=== PATIENT | female | born 1955 | race Caucasian/White ===

== ENCOUNTER 2018-02-18 10:19 | Emergency (ER) | payer MEDICAID ==
[~2018-02-18] VITALS: Ht 162.6 cm; Wt 54.0 kg
[2018-02-18 10:27] VITALS: BP 125/76
[2018-02-18 10:54] LABS: BASOPHILS # (AUTO) 0.1 X10'3 (0-0.2); BASOPHILS % (AUTO) 1.6 % (0-1); EOSINOPHILS # (AUTO) 0.1 X10'3 (0-0.9); EOSINOPHILS % (AUTO) 1.2 % (0-6); HEMATOCRIT 41.9 % (35.0-45.0); HEMOGLOBIN 14.5 g/dl (12.0-16.0); LYMPHOCYTES % (AUTO) 24.8 % (21-51); MEAN CORPUSCULAR HEMOGLOBIN 31.9 PG (27.0-31.0); MEAN CORPUSCULAR HGB CONC 34.7 % (33.0-36.5); MEAN PLATELET VOLUME 8.2 FL (7.4-10.4); MONOCYTES # (AUTO) 0.5 X10'3 (0-0.9); MONOCYTES % (AUTO) 6.6 % (2-12); NEUTROPHILS # (AUTO) 5.3 X10'3 (1.8-7.7); NEUTROPHILS % (AUTO) 65.8 % (42-75); PLATELET COUNT 239 X10'3 (140-440); RED BLOOD COUNT 4.55 X10'6 (4.20-5.60); RED CELL DISTRIBUTION WIDTH 14.2 % (11.5-14.5)
[2018-02-18 10:59] LABS: CLARITY,URINE CLEAR (Clear); COLOR,URINE YELLOW (Yellow); GLUCOSE, URINE NEGATIVE (Neg); KETONES,URINE NEGATIVE (Neg); LEUKOCYTE ESTERASE ,URINE NEGATIVE (Neg); NITRITES, URINE NEGATIVE (Neg); OCCULT BLOOD,URINE NEGATIVE (Neg); PH,URINE 6.5 (4.8-8.0); PROTEIN,URINE NEGATIVE (Neg); UROBILINOGEN,URINE 0.2 E.U/dL (0.2-1.0)
[2018-02-18 11:02] LABS: INR 0.9 INR; PROTHROMBIN TIME 9.7 SECONDS (9.0-12.0)
[2018-02-18 11:07] LABS: UA COLLECTION TYPE CLN CATCH MIDSTREAM
[2018-02-18 11:09] LABS: ALANINE AMINOTRANSFERASE 33 U/L (12-78); ALBUMIN 4.4 G/DL (3.4-5.0); ALBUMIN/GLOBULIN RATIO 1.2 (1.1-1.5); ALKALINE PHOSPHATASE 61 IU/L (46-116); AMYLASE 40 U/L (25-115); ANION GAP 9 (8-16); ASPARTATE AMINO TRANSFERASE 26 U/L (10-37); BILIRUBIN,TOTAL 0.5 MG/DL (0.1-1.0); BLOOD UREA NITROGEN 11 MG/DL (7-18); BUN/CREATININE RATIO 19.6 (6.6-38.0); CALCIUM 9.9 MG/DL (8.5-10.1); CHLORIDE 104 MMOL/L (99-107); CREATININE 0.56 MG/DL (0.40-0.90); GLUCOSE 70 MG/DL (70-104); LIPASE 209 U/L (73-393); POTASSIUM 4.3 MMOL/L (3.5-5.1); SODIUM 144 MMOL/L (135-145); TOTAL CARBON DIOXIDE 30.8 MMOL/L (24-32); eGFR > 90 ML/MIN
== END 2018-02-18 13:30 | disposition home or self-care (01) ==
LOC: ER 10:19
DX: S39.011A Strain of muscle, fascia and tendon of abdomen, initial encounter (principal); G62.9 Polyneuropathy, unspecified; E78.00 Pure hypercholesterolemia, unspecified; I10 Essential (primary) hypertension; M81.0 Age-related osteoporosis without current pathological fracture; F17.210 Nicotine dependence, cigarettes, uncomplicated; Z88.0 Allergy status to penicillin; X58.XXXA Exposure to other specified factors, initial encounter; Y93.89 Activity, other specified; Y92.89 Other specified places as the place of occurrence of the external cause; Y99.8 Other external cause status
CPT/HCPCS: 36415; 80053; 81003; 82150; 83690; 85025; 85610; 99284

== ENCOUNTER 2024-12-28 09:35 | Emergency (ER) | payer BC, MEDICAID ==
[~2024-12-28] VITALS: Ht 162.6 cm; Wt 125.0 kg
[~2024-12-28 09:35] MED LIST: CEPH-571 PO; DOCU-28 PO; HYDR-4383 PO
[2024-12-28] MEDS ORDERED: LIDO700A32 TOP (11:10)
[2024-12-28] MEDS ORDERED: HYDR-3965 PO (11:10)
[2024-12-28] MEDS: HYDROcodone/acetaminophen 5mg/325mg tablet PO ONE (11:29)
[2024-12-28] MEDS: ondansetron 4mg rapidly disintigrating tab PO ONE (11:29)
[2024-12-28 11:37] VITALS: BP 134/88; PULSE 78; RESP 18; TEMP 98.5; O2SAT 98
[2024-12-28] MEDS ORDERED: DOCU-148 PO (12:26)
[2024-12-28] MEDS ORDERED: MAGN296S68 PO (12:26)
[2024-12-29] MEDS ORDERED: LIDOcaine 5% patch TP SCH (08:00)
== END 2024-12-28 11:37 | disposition home or self-care (01) ==
LOC: ER 09:36
DX: S20.211A Contusion of right front wall of thorax, initial encounter (principal); E78.00 Pure hypercholesterolemia, unspecified; I10 Essential (primary) hypertension; G62.9 Polyneuropathy, unspecified; Z88.0 Allergy status to penicillin; Z79.1 Long term (current) use of non-steroidal anti-inflammatories (NSAID); Z79.899 Other long term (current) drug therapy; Z98.890 Other specified postprocedural states; Z72.89 Other problems related to lifestyle; W18.30XA Fall on same level, unspecified, initial encounter; Y93.89 Activity, other specified; Y92.89 Other specified places as the place of occurrence of the external cause; Y99.8 Other external cause status
CPT/HCPCS: 71101; 99284

== ENCOUNTER 2025-02-22 09:26 | Emergency (ER) | payer BC, MEDICAID ==
[~2025-02-22] VITALS: Ht 162.6 cm; Wt 65.9 kg
[~2025-02-22 09:26] MED LIST changes: +DOCU-148 PO; +LIDO700A32 TOP; +MAGN296S68 PO
[2025-02-22] MEDS ORDERED: HYDR-3965 PO (11:53)
[2025-02-22 12:13] VITALS: BP 124/78; PULSE 78; RESP 18; TEMP 98.8; O2SAT 98
== END 2025-02-22 12:17 | disposition home or self-care (01) ==
LOC: ER 09:27
DX: M25.551 Pain in right hip (principal); E78.00 Pure hypercholesterolemia, unspecified; I10 Essential (primary) hypertension; G62.9 Polyneuropathy, unspecified; M81.0 Age-related osteoporosis without current pathological fracture; Z88.0 Allergy status to penicillin; W18.30XA Fall on same level, unspecified, initial encounter; Y93.89 Activity, other specified; Y92.89 Other specified places as the place of occurrence of the external cause; Y99.8 Other external cause status
CPT/HCPCS: 73502; 99283